=== PATIENT | male | born 1990 | race Caucasian/White ===

== ENCOUNTER 2020-01-02 18:48 | Emergency (ER) | payer SELFPAY ==
[~2020-01-02] VITALS: Ht 180.3 cm; Wt 112.0 kg
--- NOTE | 2020-01-02 19:16 | NUR ---
BP CUFF, PULSE OX IN PLACE. URINE COLLECTED/SENT TO LAB. PT STATES PAIN TOLERABLE AT THIS TIME, RATED 6/10 TO LUQ. FAMILY AT BS, CALL LIGHT WITHIN REACH.
[2020-01-02 19:25] LABS: MICROSCOPIC NOT IND
[2020-01-02 19:30] LABS: CULTURE INDICATED? NO
[2020-01-02 19:40] LABS: BASOPHILS # (AUTO) 0.04 x10^3/uL (0-0.1); BASOPHILS % (AUTO) 0 % (0-1); EOSINOPHILS # (AUTO) 0.28 x10^3/uL (0-0.4); EOSINOPHILS % (AUTO) 2 % (1-7); LYMPHOCYTES # (AUTO) 2.48 x10^3/uL (1-3.4); LYMPHOCYTES % (AUTO) 21 % (22-44); MD NO; MEAN CORPUSCULAR HGB CONC 33.3 g/dL (33.2-36.2); MEAN CORPUSCULAR VOLUME 87.3 fL (81-97); MEAN PLATELET VOLUME 7.8 fL (7.4-10.4); MONOCYTES % (AUTO) 4 % (2-9); NEUTROPHILS # (AUTO) 8.37 x10^3/uL (1.8-6.8); NEUTROPHILS % (AUTO) 72 % (42-75); PLATELET COUNT 290 x10^3/uL (130-400); RED BLOOD COUNT 5.29 x10^6/uL (4.38-5.82); RED CELL DISTRIBUTION WIDTH 13.1 % (9.4-14.8)
[2020-01-02 19:50] LABS: ALANINE AMINOTRANSFERASE 29 U/L (12-78); ALBUMIN 3.4 g/dL (3.4-5.0); ANION GAP 6 mmol/L (5-15); CALCIUM 8.6 mg/dL (8.5-10.1); CHLORIDE 106 mmol/L (98-107); CREATININE 0.99 mg/dL (0.7-1.3)
[2020-01-02 19:52] LABS: ALKALINE PHOSPHATASE 118 U/L (45-117); BILIRUBIN,TOTAL 0.4 mg/dL (0.2-1.0); TOTAL PROTEIN 6.8 g/dL (6.4-8.2)
[2020-01-02] MEDS ORDERED: HYDROmorphone 1 MG/ML, 1ML INJ ONE (20:11)
--- NOTE | 2020-01-02 20:14 | NUR ---
PT WITH EXCRUCIATING LUQ PAIN, VERBAL ORDER FOR DILAUDID OBTAINED FROM ERP. DILAUDID GIVEN, VS UPDATED IN COMPUTER. CALL LIGHT WITHIN REACH. FAMILY AT BS.
[2020-01-02] MEDS ORDERED: HYDROmorphone 1 MG/ML, 1ML INJ IV ONE (20:30)
--- NOTE | 2020-01-02 20:40 | NUR ---
REPORT RECEIVED FROM HOLGER SOUZA. PLAN OF CARE DISCUSSED. WAITING FOR RECORDS FROM [facility]
--- NOTE | 2020-01-02 20:46 | NUR ---
PER [employer], MEDICAL RECORDS RECEIVED FROM [facility], GIVEN TO ERP
[2020-01-02] MEDS ORDERED: KETOROLAC 30 MG/1 ML IVPush ONE (21:00)
[2020-01-02] MEDS ORDERED: KETOROLAC 30 MG/1 ML ONE (21:01)
--- NOTE | 2020-01-02 21:10 | NUR ---
PATIENT MEDICATED PER EMAR, TOLERATED WELL ERP TO BEDSIDE AT THIS TIME
[2020-01-02] MEDS ORDERED: OMNIPAQUE 350 MG/ML, 100ML BOTTLE ONE (21:44)
[2020-01-02 22:08] VITALS: BP 136/82
--- NOTE | 2020-01-02 22:08 | NUR ---
PATIENT BACK FROM CT
[2020-01-02] MEDS ORDERED: PANTOPRAZOLE 40 MG IV ONE (22:18)
[2020-01-02] MEDS ORDERED: PANTOPRAZOLE 40 MG IV IVPush ONE (22:30)
--- NOTE | 2020-01-02 22:40 | NUR ---
PATIENT MEDICATED PER EMAR, TOLERATED WELL. PIV REMOVED
--- NOTE | 2020-01-02 22:52 | NUR ---
Patient/Caregiver given discharge instructions and they have confirmed that they understand the instructions. Patient ambulatory with steady gait.
== END 2020-01-02 22:54 | disposition home or self-care (01) ==
LOC: ED 22:15
DX: R10.12 Left upper quadrant pain (principal); R06.02 Shortness of breath; F17.200 Nicotine dependence, unspecified, uncomplicated
CPT/HCPCS: 36415; 71275; 80053; 81003; 83690; 85025; 85379; 96374; 96375; 99285; C9113; J1170; J1885; Q9967

== ENCOUNTER 2020-01-07 04:33 | Emergency (ER) | payer SELFPAY ==
[~2020-01-07] VITALS: Ht 177.8 cm; Wt 112.0 kg
--- NOTE | 2020-01-07 04:42 | NUR ---
BIBA FOR C/O LEFT UPPER ABD PAIN ON AND OFF X1 WEEK. TODAY IT CAME ON SUDDENLY WHILE RESTING PER PT. PLACED VITALS MONITORS, SIDE RAILS UP AND LOCKED, CALL LIGHT PLACED WITHIN REACH.
--- NOTE | 2020-01-07 05:05 | NUR ---
ER provider at bedside for eval.
[2020-01-07] MEDS ORDERED: ONDANSETRON 2MG/ML, 2ML ONE (05:16)
[2020-01-07] MEDS ORDERED: FAMOTIDINE 20 MG/2 ML ONE (05:17)
[2020-01-07] MEDS ORDERED: MORPHINE SULFATE 4 MG/ML, 1ML ONE (05:17)
[2020-01-07] MEDS ORDERED: ONDANSETRON 2MG/ML, 2ML IVPush ONE (05:30)
[2020-01-07] MEDS ORDERED: FAMOTIDINE 20 MG/2 ML IVPush ONE (05:30)
[2020-01-07] MEDS ORDERED: MORPHINE SULFATE 4 MG/ML, 1ML IVPush PRN (05:30)
[2020-01-07] MEDS ORDERED: SODIUM CHLORIDE FLUSH 10ML SYR IVF ONE (05:30)
--- NOTE | 2020-01-07 05:56 | NUR ---
VSS, MEDICATED PER MAR. SIDE RAILS UP AND LOCKED, SPOUSE AT BEDSIDE.
[2020-01-07 06:12] LABS: ALANINE AMINOTRANSFERASE 93 U/L (12-78); ALBUMIN 3.2 g/dL (3.4-5.0); ANION GAP 8 mmol/L (5-15); CALCIUM 8.6 mg/dL (8.5-10.1); CHLORIDE 108 mmol/L (98-107); CREATININE 1.08 mg/dL (0.7-1.3)
[2020-01-07 06:14] LABS: ALKALINE PHOSPHATASE 150 U/L (45-117); BILIRUBIN,TOTAL 0.3 mg/dL (0.2-1.0); TOTAL PROTEIN 6.9 g/dL (6.4-8.2)
--- NOTE | 2020-01-07 06:22 | NUR ---
PT SLEEPING, EASILY AROUSED, VSS, DENIES PAIN AT THIS TIME.
[2020-01-07 06:23] LABS: MEAN CORPUSCULAR HGB CONC 33.5 g/dL (33.2-36.2); MEAN CORPUSCULAR VOLUME 86.5 fL (81-97); MEAN PLATELET VOLUME 7.5 fL (7.4-10.4); PLATELET COUNT 310 x10^3/uL (130-400); RED BLOOD COUNT 5.43 x10^6/uL (4.38-5.82)
[2020-01-07 06:43] LABS: BASOPHILS # (AUTO) 0.07 x10^3/uL (0-0.1); BASOPHILS % (AUTO) 0 % (0-1); EOSINOPHILS % (AUTO) 2 % (1-7); LYMPHOCYTES # (AUTO) 2.76 x10^3/uL (1-3.4); LYMPHOCYTES % (AUTO) 15 % (22-44); MD SCAN; MONOCYTES # (AUTO) 0.73 x10^3/uL (0.2-0.8); MONOCYTES % (AUTO) 4 % (2-9); NEUTROPHILS # (AUTO) 14.94 x10^3/uL (1.8-6.8); NEUTROPHILS % (AUTO) 80 % (42-75)
--- NOTE | 2020-01-07 06:46 | NUR ---
Report given to Keny WREN.
[2020-01-07] MEDS ORDERED: OMNIPAQUE 350 MG/ML, 150 ML BOTTLE ONE (07:45)
[2020-01-07 08:28] VITALS: BP 109/71
--- NOTE | 2020-01-07 08:28 | NUR ---
Patient given discharge instructions and they have confirmed that they understand the instructions. Patient ambulatory with steady gait. Ride coming to drive pt & sig.other home.
== END 2020-01-07 08:30 | disposition home or self-care (01) ==
LOC: ED 06:11
DX: K29.70 Gastritis, unspecified, without bleeding (principal); R10.13 Epigastric pain; F17.210 Nicotine dependence, cigarettes, uncomplicated
CPT/HCPCS: 36415; 74177; 76700; 80053; 83690; 85025; 96374; 96375; 99285; J2270; J2405; J3490; Q9967

== ENCOUNTER 2020-05-04 12:51 | Emergency (ER) | payer MEDICAID ==
[~2020-05-04] VITALS: Ht 177.8 cm; Wt 111.0 kg
[2020-05-04 13:02] VITALS: BP 112/73
--- NOTE | 2020-05-04 13:05 | NUR ---
PT BIB EMS FOR ABDOMINAL PAIN W N/V. PT DENIES COUGH, SOB OR CP. REGUALAR BM. LEFT SIDED PAIN.
--- NOTE | 2020-05-04 13:33 | NUR ---
TASK RN: PT AT DOOR, STATES "I'M FEELING BETTER AND JUST WANT TO LEAVE. I KNOW I NEED TO F/U WITH PCP" NO IV TO DC. PT LEFT AMBULATORY, GAIT STEADY.
== END 2020-05-04 13:36 | disposition left against medical advice (07) ==
LOC: ED 13:35
DX: R10.9 Unspecified abdominal pain (principal); Z53.21 Procedure and treatment not carried out due to patient leaving prior to being seen by health care provider

== ENCOUNTER 2020-06-01 07:35 | Emergency (ER) | payer MEDICAID ==
[~2020-06-01] VITALS: Ht 177.8 cm; Wt 120.0 kg
[2020-06-01] MEDS ORDERED: PLEASE ENTER HEIGHT AND WEIGHT MC SCH (08:00)
[2020-06-01] MEDS ORDERED: SODIUM CHLORIDE FLUSH 10ML SYR IVF ONE (08:00)
--- NOTE | 2020-06-01 08:09 | NUR ---
Break RN note: Pt resting in bed with eyes closed, resp even and unlabored, NADN.
[2020-06-01 08:28] LABS: BASOPHILS # (AUTO) 0.07 x10^3/uL (0-0.1); BASOPHILS % (AUTO) 1 % (0-1); EOSINOPHILS # (AUTO) 0.42 x10^3/uL (0-0.4); EOSINOPHILS % (AUTO) 3 % (1-7); LYMPHOCYTES % (AUTO) 24 % (22-44); MD NO; MEAN CORPUSCULAR HEMOGLOBIN 28.7 pg (27.5-34.5); MEAN CORPUSCULAR HGB CONC 32.4 g/dL (33.2-36.2); MEAN CORPUSCULAR VOLUME 88.7 fL (81-97); MEAN PLATELET VOLUME 7.6 fL (7.4-10.4); MONOCYTES # (AUTO) 0.55 x10^3/uL (0.2-0.8); MONOCYTES % (AUTO) 4 % (2-9); NEUTROPHILS # (AUTO) 9.75 x10^3/uL (1.8-6.8); NEUTROPHILS % (AUTO) 69 % (42-75); PLATELET COUNT 246 x10^3/uL (130-400); RED BLOOD COUNT 5.74 x10^6/uL (4.38-5.82); RED CELL DISTRIBUTION WIDTH 13.1 % (9.4-14.8)
[2020-06-01 08:37] LABS: ALBUMIN 3.2 g/dL (3.4-5.0); ANION GAP 4 mmol/L (5-15); CALCIUM 8.3 mg/dL (8.5-10.1); CHLORIDE 110 mmol/L (98-107)
[2020-06-01 08:40] LABS: ALANINE AMINOTRANSFERASE 48 U/L (12-78); ALKALINE PHOSPHATASE 109 U/L (45-117); BILIRUBIN,TOTAL 0.5 mg/dL (0.2-1.0); CREATININE 1.02 mg/dL (0.7-1.3); TOTAL PROTEIN 6.1 g/dL (6.4-8.2)
[2020-06-01 08:55] VITALS: BP 136/80
[2020-06-01] MEDS ORDERED: OMNIPAQUE 350 MG/ML, 100ML BOTTLE ONE (10:01)
[2020-06-01] MEDS ORDERED: MAALOX/HYOSCYAMINE/LIDOCAINE 45 ML BTL PO ONE (11:30)
== END 2020-06-01 11:30 | disposition home or self-care (01) ==
LOC: ED 08:13
DX: K29.00 Acute gastritis without bleeding (principal); K31.0 Acute dilatation of stomach; R11.2 Nausea with vomiting, unspecified; K76.0 Fatty (change of) liver, not elsewhere classified; F17.290 Nicotine dependence, other tobacco product, uncomplicated
CPT/HCPCS: 36415; 74177; 76700; 80053; 83690; 85025; 99285; Q9967

== ENCOUNTER 2020-06-24 20:03 | Emergency (ER) | payer MEDICAID ==
[~2020-06-24] VITALS: Ht 177.8 cm; Wt 110.0 kg
--- NOTE | 2020-06-24 20:05 | NUR ---
BIBA FOR LUQ ABD PAIN, PT REPORTS HX OF GASTRITIS AND AWAITING FOLLOW UP WITH GI.
[2020-06-24] MEDS ORDERED: ONDA4TAB7 PO (20:11)
[2020-06-24] MEDS ORDERED: SUCR1TAB33 PO (20:11)
[2020-06-24] MEDS ORDERED: ONDANSETRON 2MG/ML, 2ML IVPush ONE (21:00)
[2020-06-24] MEDS ORDERED: MORPHINE SULFATE 4 MG/ML, 1ML IVPush PRN (21:00)
[2020-06-24 21:14] LABS: BASOPHILS # (AUTO) 0.06 x10^3/uL (0-0.1); BASOPHILS % (AUTO) 0 % (0-1); EOSINOPHILS # (AUTO) 0.26 x10^3/uL (0-0.4); EOSINOPHILS % (AUTO) 2 % (1-7); LYMPHOCYTES # (AUTO) 2.54 x10^3/uL (1-3.4); LYMPHOCYTES % (AUTO) 16 % (22-44); MD NO; MEAN CORPUSCULAR HEMOGLOBIN 29.2 pg (27.5-34.5); MEAN CORPUSCULAR VOLUME 88.6 fL (81-97); MEAN PLATELET VOLUME 7.9 fL (7.4-10.4); MONOCYTES % (AUTO) 3 % (2-9); NEUTROPHILS # (AUTO) 12.09 x10^3/uL (1.8-6.8); NEUTROPHILS % (AUTO) 78 % (42-75); PLATELET COUNT 256 x10^3/uL (130-400); RED BLOOD COUNT 5.36 x10^6/uL (4.38-5.82)
[2020-06-24] MEDS ORDERED: MORPHINE SULFATE 4 MG/ML, 1ML ONE (21:23)
[2020-06-24] MEDS ORDERED: ONDANSETRON 2MG/ML, 2ML ONE (21:23)
[2020-06-24 21:24] LABS: ALANINE AMINOTRANSFERASE 36 U/L (12-78); ALBUMIN 3.2 g/dL (3.4-5.0); ANION GAP 2 mmol/L (5-15); CALCIUM 7.7 mg/dL (8.5-10.1); CHLORIDE 111 mmol/L (98-107); CREATININE 1.01 mg/dL (0.7-1.3)
[2020-06-24 21:27] LABS: ALKALINE PHOSPHATASE 105 U/L (45-117); BILIRUBIN,TOTAL 0.2 mg/dL (0.2-1.0); TOTAL PROTEIN 6.2 g/dL (6.4-8.2)
--- NOTE | 2020-06-24 22:30 | NUR ---
PT RESTING ON GUNEIDA IN NAD, SPOUSE AT BEDSIDE.
--- NOTE | 2020-06-24 23:05 | NUR ---
SLEEPING IN NAD, EVEN AND UNLABORED RESPIRATIONS. VSS. SPOUSE AT BEDSIDE.
--- NOTE | 2020-06-24 23:13 | NUR ---
REPORT GIVEN TO AKBAR WREN.
[2020-06-25 00:21] VITALS: BP 135/74
== END 2020-06-25 00:23 | disposition home or self-care (01) ==
LOC: ED 22:26
DX: K80.20 Calculus of gallbladder without cholecystitis without obstruction (principal)
CPT/HCPCS: 36415; 76700; 80053; 83690; 85025; 96374; 96375; 99284; J2270; J2405

== ENCOUNTER 2020-06-25 18:38 | Emergency (ER) | payer MEDICAID ==
[~2020-06-25 18:38] MED LIST: ONDA4TAB7 PO; SUCR1TAB33 PO
--- NOTE | 2020-06-25 19:05 | NUR ---
mid triage patient reports " my abd cramping is much better. I'm just gong to go home." Despite re-direction patient and sure of decision.
== END 2020-06-25 19:09 | disposition left against medical advice (07) ==
LOC: ED 19:00
DX: R10.9 Unspecified abdominal pain (principal); Z53.21 Procedure and treatment not carried out due to patient leaving prior to being seen by health care provider

== ENCOUNTER 2020-07-03 20:52 | Emergency (ER) | payer MEDICAID ==
[~2020-07-03] VITALS: Ht 177.8 cm; Wt 109.0 kg
--- NOTE | 2020-07-03 21:01 | NUR ---
PT BIB [facility]. RECENTLY DIAGNOSED WITH GASTRITIS, PT TO SEE GI TOMORROW PER APPT. PT HAS ONGOING N/V AND "BURNING" ABD PAIN. GIVEN 100MCG FENTANYL, 4MG ZOFRAN EN ROUTE TO GOOD RELIEF. PT DRESSED IN GOWN, ATTACHED TO MONITORS. EKG DONE. PT DENIES ANY NEEDS OR CONCERNS AT THIS TIME, CALL LIGHT IN REACH.
[2020-07-03] MEDS ORDERED: FAMOTIDINE 20 MG TABLET PO ONE (21:30)
[2020-07-03] MEDS ORDERED: MAALOX/HYOSCYAMINE/LIDOCAINE 45 ML BTL PO ONE (21:30)
[2020-07-03] MEDS ORDERED: MAALOX/HYOSCYAMINE/LIDOCAINE 45 ML BTL ONE (21:35)
[2020-07-03] MEDS ORDERED: FAMOTIDINE 20 MG/2 ML ONE (21:35)
[2020-07-03 21:46] LABS: BASOPHILS # (AUTO) 0.05 x10^3/uL (0-0.1); BASOPHILS % (AUTO) 0 % (0-1); EOSINOPHILS % (AUTO) 2 % (1-7); LYMPHOCYTES # (AUTO) 2.97 x10^3/uL (1-3.4); LYMPHOCYTES % (AUTO) 22 % (22-44); MD NO; MEAN CORPUSCULAR HEMOGLOBIN 29.2 pg (27.5-34.5); MEAN CORPUSCULAR HGB CONC 33.1 g/dL (33.2-36.2); MEAN CORPUSCULAR VOLUME 88.4 fL (81-97); MEAN PLATELET VOLUME 7.7 fL (7.4-10.4); MONOCYTES # (AUTO) 0.53 x10^3/uL (0.2-0.8); MONOCYTES % (AUTO) 4 % (2-9); NEUTROPHILS # (AUTO) 9.73 x10^3/uL (1.8-6.8); NEUTROPHILS % (AUTO) 72 % (42-75); PLATELET COUNT 282 x10^3/uL (130-400); RED BLOOD COUNT 5.07 x10^6/uL (4.38-5.82); RED CELL DISTRIBUTION WIDTH 12.9 % (9.4-14.8)
[2020-07-03 21:57] LABS: ALANINE AMINOTRANSFERASE 71 U/L (12-78); ALBUMIN 3.2 g/dL (3.4-5.0); ANION GAP 6 mmol/L (5-15); CALCIUM 7.8 mg/dL (8.5-10.1); CHLORIDE 112 mmol/L (98-107); CREATININE 0.86 mg/dL (0.7-1.3)
[2020-07-03 21:59] LABS: ALKALINE PHOSPHATASE 133 U/L (45-117); BILIRUBIN,TOTAL 0.3 mg/dL (0.2-1.0); TOTAL PROTEIN 6.3 g/dL (6.4-8.2)
[2020-07-03 22:50] VITALS: BP 103/56
== END 2020-07-03 22:52 | disposition home or self-care (01) ==
LOC: ED 21:21
DX: K29.00 Acute gastritis without bleeding (principal); R10.13 Epigastric pain; R10.12 Left upper quadrant pain; R11.2 Nausea with vomiting, unspecified; R94.31 Abnormal electrocardiogram [ECG] [EKG]; F17.210 Nicotine dependence, cigarettes, uncomplicated
CPT/HCPCS: 36415; 80053; 80307; 83690; 85025; 93005; 99284; 99406

== ENCOUNTER 2020-08-06 01:40 | Emergency (ER) | payer MEDICAID ==
[~2020-08-06] VITALS: Ht 177.8 cm; Wt 110.0 kg
[2020-08-06] MEDS ORDERED: MAALOX/HYOSCYAMINE/LIDOCAINE 45 ML BTL PO ONE (02:00)
[2020-08-06] MEDS ORDERED: METOCLOPRAMIDE 5 MG/ML, 2ML IVPush ONE (02:00)
[2020-08-06] MEDS ORDERED: MAALOX/HYOSCYAMINE/LIDOCAINE 45 ML BTL ONE (02:04)
[2020-08-06] MEDS ORDERED: METOCLOPRAMIDE 5 MG/ML, 2ML ONE (02:04)
[2020-08-06 02:10] LABS: BASOPHILS # (AUTO) 0.06 x10^3/uL (0-0.1); BASOPHILS % (AUTO) 1 % (0-1); EOSINOPHILS # (AUTO) 0.33 x10^3/uL (0-0.4); EOSINOPHILS % (AUTO) 3 % (1-7); LYMPHOCYTES # (AUTO) 3.59 x10^3/uL (1-3.4); LYMPHOCYTES % (AUTO) 31 % (22-44); MD NO; MEAN CORPUSCULAR HEMOGLOBIN 28.8 pg (27.5-34.5); MEAN CORPUSCULAR HGB CONC 32.5 g/dL (33.2-36.2); MEAN PLATELET VOLUME 7.3 fL (7.4-10.4); MONOCYTES # (AUTO) 0.45 x10^3/uL (0.2-0.8); MONOCYTES % (AUTO) 4 % (2-9); NEUTROPHILS # (AUTO) 7.28 x10^3/uL (1.8-6.8); NEUTROPHILS % (AUTO) 62 % (42-75); PLATELET COUNT 271 x10^3/uL (130-400); RED BLOOD COUNT 5.39 x10^6/uL (4.38-5.82); RED CELL DISTRIBUTION WIDTH 12.7 % (9.4-14.8)
--- NOTE | 2020-08-06 02:10 | NUR ---
pt medicated per emar
[2020-08-06 02:23] LABS: ALANINE AMINOTRANSFERASE 43 U/L (12-78); ALBUMIN 3.2 g/dL (3.4-5.0); ANION GAP 5 mmol/L (5-15); CALCIUM 8.5 mg/dL (8.5-10.1); CHLORIDE 111 mmol/L (98-107); CREATININE 1.05 mg/dL (0.7-1.3)
[2020-08-06 02:25] LABS: ALKALINE PHOSPHATASE 105 U/L (45-117); BILIRUBIN,TOTAL 0.2 mg/dL (0.2-1.0); TOTAL PROTEIN 6.3 g/dL (6.4-8.2)
[2020-08-06 03:26] VITALS: BP 136/74
== END 2020-08-06 03:29 | disposition home or self-care (01) ==
LOC: ED 02:20
DX: R10.12 Left upper quadrant pain (principal); R11.2 Nausea with vomiting, unspecified; F17.210 Nicotine dependence, cigarettes, uncomplicated
CPT/HCPCS: 36415; 80053; 83690; 85025; 96374; 99283; 99406; J2765

== ENCOUNTER 2020-09-01 20:35 | Emergency (ER) | payer MEDICAID ==
[~2020-09-01] VITALS: Ht 177.8 cm; Wt 110.0 kg
[2020-09-01] MEDS ORDERED: DICY20TA3 PO (20:52)
[2020-09-01] MEDS ORDERED: ONDANSETRON ODT 4 MG ONE (21:29)
[2020-09-01] MEDS ORDERED: MORPHINE SULFATE 4 MG/ML, 1ML IVPush PRN (21:30)
[2020-09-01] MEDS ORDERED: ONDANSETRON 2MG/ML, 2ML ONE (21:30)
[2020-09-01] MEDS ORDERED: SODIUM CHLORIDE 0.9% 1,000ML IVBOLUS ONE (21:30)
[2020-09-01] MEDS ORDERED: MAALOX/HYOSCYAMINE/LIDOCAINE 45 ML BTL PO ONE (21:30)
[2020-09-01] MEDS ORDERED: MORPHINE SULFATE 4 MG/ML, 1ML ONE (21:30)
[2020-09-01] MEDS ORDERED: ONDANSETRON 2MG/ML, 2ML IVPush ONE (21:30)
[2020-09-01] MEDS ORDERED: SODIUM CHLORIDE FLUSH 10ML SYR IVF ONE (21:30)
[2020-09-01] MEDS ORDERED: MAALOX/HYOSCYAMINE/LIDOCAINE 45 ML BTL ONE (21:40)
[2020-09-01 21:55] LABS: BASOPHILS % (AUTO) 1 % (0-1); EOSINOPHILS % (AUTO) 1 % (1-7); LYMPHOCYTES % (AUTO) 16 % (22-44); MEAN CORPUSCULAR HEMOGLOBIN 28.9 pg (27.5-34.5); MEAN CORPUSCULAR HGB CONC 33.4 g/dL (33.2-36.2); MEAN PLATELET VOLUME 7.3 fL (7.4-10.4); MONOCYTES % (AUTO) 4 % (2-9); NEUTROPHILS % (AUTO) 79 % (42-75); PLATELET COUNT 284 x10^3/uL (130-400); RED BLOOD COUNT 5.29 x10^6/uL (4.38-5.82); RED CELL DISTRIBUTION WIDTH 12.6 % (9.4-14.8)
[2020-09-01 21:58] LABS: MD NO
[2020-09-01 22:04] LABS: ALANINE AMINOTRANSFERASE 92 U/L (12-78); ALBUMIN 3.1 g/dL (3.4-5.0); ANION GAP 6 mmol/L (5-15); CALCIUM 8.9 mg/dL (8.5-10.1); CHLORIDE 106 mmol/L (98-107); CREATININE 1.16 mg/dL (0.7-1.3)
[2020-09-01 22:09] LABS: ALKALINE PHOSPHATASE 117 U/L (45-117); BILIRUBIN,TOTAL 0.3 mg/dL (0.2-1.0); TOTAL PROTEIN 6.3 g/dL (6.4-8.2)
[2020-09-01 22:46] LABS: MICROSCOPIC NOT IND
[2020-09-01 23:50] VITALS: BP 108/54
== END 2020-09-01 23:53 | disposition home or self-care (01) ==
LOC: ED 22:09
DX: K29.00 Acute gastritis without bleeding (principal); F17.210 Nicotine dependence, cigarettes, uncomplicated
CPT/HCPCS: 36415; 80053; 81003; 83690; 85025; 96361; 96374; 96375; 99284; 99406; J2270; J2405; J7030

== ENCOUNTER 2020-11-21 18:39 | Inpatient (IN) | payer MEDICAID ==
[~2020-11-21] VITALS: Ht 177.8 cm; Wt 106.5 kg
[~2020-11-21 18:39] MED LIST changes: +DICY20TA3 PO; +OMEP20TA62 PO
--- NOTE | 2020-11-21 18:59 | NUR ---
pt ambulated back to room 20, c/o pain to upper abdominal area. pt in bed, and on cr monitor, and able to speak full sentences.
[2020-11-21] MEDS ORDERED: ONDANSETRON 2MG/ML, 2ML IVPush ONE ×2 (20:00→23:30)
[2020-11-21] MEDS ORDERED: SODIUM CHLORIDE FLUSH 10ML SYR IVF ONE (20:00)
[2020-11-21] MEDS ORDERED: MORPHINE SULFATE 4 MG/ML, 1ML IVPush PRN ×2 (20:00→23:30)
[2020-11-21] MEDS ORDERED: ONDANSETRON 2MG/ML, 2ML ONE ×2 (20:01→23:17)
[2020-11-21] MEDS ORDERED: MORPHINE SULFATE 4 MG/ML, 1ML ONE (20:01)
--- NOTE | 2020-11-21 20:28 | NUR ---
pt calm and sleeping. awakened and blood drawn from existing iv on left AC 20g. tolerated well, and lab took the blood to lab. meds given to pt and he verbalized relief of pain. on cr monitor, side rails up x2 and call light within reach. pt instructed to give UA sample
[2020-11-21 20:33] LABS: BASOPHILS % (AUTO) 0 % (0-1); EOSINOPHILS % (AUTO) 0 % (1-7); LYMPHOCYTES % (AUTO) 7 % (22-44); MEAN CORPUSCULAR HEMOGLOBIN 29.5 pg (27.5-34.5); MEAN CORPUSCULAR HGB CONC 33.9 g/dL (33.2-36.2); MEAN PLATELET VOLUME 7.8 fL (7.4-10.4); MONOCYTES % (AUTO) 3 % (2-9); NEUTROPHILS % (AUTO) 89 % (42-75); PLATELET COUNT 281 x10^3/uL (130-400); RED BLOOD COUNT 5.39 x10^6/uL (4.38-5.82); RED CELL DISTRIBUTION WIDTH 12.7 % (9.4-14.8)
[2020-11-21 20:41] LABS: ALANINE AMINOTRANSFERASE 295 U/L (12-78); ALBUMIN 3.5 g/dL (3.4-5.0); ANION GAP 5 mmol/L (5-15); CHLORIDE 105 mmol/L (98-107); CREATININE 0.82 mg/dL (0.7-1.3)
[2020-11-21 20:45] LABS: ALKALINE PHOSPHATASE 278 U/L (45-117); BILIRUBIN,TOTAL 1.9 mg/dL (0.2-1.0); TOTAL PROTEIN 6.9 g/dL (6.4-8.2)
--- NOTE | 2020-11-21 20:48 | NUR ---
pt awake and watching tv and in no distress at all. no c/o pain at this time. pt calm and cooperative, side rails up x2 and call light within reach.
[2020-11-21 20:55] LABS: MICROSCOPIC INDICATED
[2020-11-21 21:14] LABS: MD SCAN
--- NOTE | 2020-11-21 21:56 | NUR ---
pt calm and cooperative, and no acute distress. ivf started, 1 Liter NS.
[2020-11-21] MEDS ORDERED: SODIUM CHLORIDE 0.9% 1,000ML IVBOLUS ONE (22:00)
[2020-11-21] MEDS ORDERED: IBUPROFEN 600 MG TABLET PO PRN (23:00)
[2020-11-21] MEDS ORDERED: morphine SULFATE 10 MG/ML, 1ML IVPush PRN (23:00)
[2020-11-21] MEDS ORDERED: CEFOTETAN PMX 2GM/50ML 50 ML IVPB ONE (23:00)
[2020-11-21] MEDS: HEPARIN 5,000 UNITS/ML, 1ML SQ SCH (23:00)
[2020-11-21] MEDS ORDERED: LABETALOL 5MG/ML, 20ML IVPush PRN (23:00)
[2020-11-21] MEDS ORDERED: DOCUSATE 100 MG CAPSULE PO PRN (23:00)
[2020-11-21] MEDS: NS + 20MEQ KCL 1,000 ML IV SCH (23:00)
[2020-11-21] MEDS ORDERED: HEPARIN 5,000 UNITS/ML, 1ML ONE (23:27)
[2020-11-21] MEDS ORDERED: ONDANSETRON 2MG/ML, 2ML IVPush PRN (23:30)
[2020-11-21] MEDS ORDERED: SODIUM CHLORIDE FLUSH 10ML SYR IVF PRN (23:30)
--- NOTE | 2020-11-21 23:59 | NUR ---
report called to RN on floor. pt awake and alert, remains in mild discomfort to abdomen, no further emesis at this time. pts at bedside. pt on cr monitor. to be transported to room via ER gurney.
[2020-11-22] MEDS: HYDROcodone/APAP 5/325 TABLET PO PRN ×4 (00:40→20:28)
[2020-11-22] MEDS ORDERED: OMNIPAQUE 350 MG/ML, 150 ML BOTTLE ONE (01:02)
[2020-11-22 03:57] VITALS: BP 145/83
[2020-11-22 06:20] LABS: BASOPHILS % (AUTO) 0 % (0-1); EOSINOPHILS % (AUTO) 1 % (1-7); LYMPHOCYTES % (AUTO) 18 % (22-44); MD NO; MEAN CORPUSCULAR HEMOGLOBIN 29.5 pg (27.5-34.5); MEAN CORPUSCULAR HGB CONC 33.7 g/dL (33.2-36.2); MEAN PLATELET VOLUME 8.1 fL (7.4-10.4); MONOCYTES % (AUTO) 4 % (2-9); NEUTROPHILS % (AUTO) 77 % (42-75); PLATELET COUNT 272 x10^3/uL (130-400); RED BLOOD COUNT 5.24 x10^6/uL (4.38-5.82); RED CELL DISTRIBUTION WIDTH 12.7 % (9.4-14.8)
[2020-11-22 06:38] LABS: ALBUMIN 3.1 g/dL (3.4-5.0); ANION GAP 5 mmol/L (5-15); CALCIUM 8.5 mg/dL (8.5-10.1); CHLORIDE 108 mmol/L (98-107)
[2020-11-22] MEDS: NS + 20MEQ KCL 1,000 ML IV SCH (06:40)
[2020-11-22 06:43] LABS: ALANINE AMINOTRANSFERASE 246 U/L (12-78); ALKALINE PHOSPHATASE 270 U/L (45-117); CREATININE 0.85 mg/dL (0.7-1.3); TOTAL PROTEIN 6.5 g/dL (6.4-8.2)
[2020-11-22 07:40] VITALS: BP 141/79
[2020-11-22] MEDS: OMEPRAZOLE 20 MG CAPSULE.DR PO SCH (10:19)
[2020-11-22] MEDS: HEPARIN 5,000 UNITS/ML, 1ML SQ SCH ×2 (10:19→17:52)
[2020-11-22] MEDS: NICOTINE 14MG/24 HR PATCH.TD24 TD SCH (10:20)
[2020-11-22 14:41] VITALS: BP 133/87
[2020-11-22 20:33] VITALS: BP 128/80
[2020-11-22] MEDS ORDERED: CEFOTETAN PMX 2GM/50ML 50 ML IV SCH (23:00)
[2020-11-23] MEDS: HEPARIN 5,000 UNITS/ML, 1ML SQ SCH ×4 (01:30→19:04)
[2020-11-23 03:27] VITALS: BP 135/75
[2020-11-23 05:22] LABS: CHLORIDE 108 mmol/L (98-107)
[2020-11-23 05:25] LABS: BASOPHILS % (AUTO) 1 % (0-1); EOSINOPHILS % (AUTO) 4 % (1-7); LYMPHOCYTES % (AUTO) 43 % (22-44); MEAN CORPUSCULAR HEMOGLOBIN 29.4 pg (27.5-34.5); MEAN CORPUSCULAR HGB CONC 33.9 g/dL (33.2-36.2); MEAN PLATELET VOLUME 8.1 fL (7.4-10.4); MONOCYTES % (AUTO) 5 % (2-9); NEUTROPHILS % (AUTO) 48 % (42-75); PLATELET COUNT 277 x10^3/uL (130-400); RED BLOOD COUNT 4.92 x10^6/uL (4.38-5.82); RED CELL DISTRIBUTION WIDTH 12.8 % (9.4-14.8)
[2020-11-23 05:29] LABS: ALANINE AMINOTRANSFERASE 185 U/L (12-78); ALKALINE PHOSPHATASE 247 U/L (45-117); ANION GAP 4 mmol/L (5-15); BILIRUBIN,TOTAL 0.7 mg/dL (0.2-1.0); CALCIUM 9.2 mg/dL (8.5-10.1); CREATININE 0.72 mg/dL (0.7-1.3); TOTAL PROTEIN 6.3 g/dL (6.4-8.2)
[2020-11-23 05:42] LABS: MD NO
[2020-11-23 08:33] VITALS: BP 135/83
[2020-11-23] MEDS: OMEPRAZOLE 20 MG CAPSULE.DR PO SCH (08:43)
[2020-11-23] MEDS: NICOTINE 14MG/24 HR PATCH.TD24 TD SCH (09:43)
[2020-11-23 12:56] VITALS: BP 144/95
[2020-11-23 15:32] VITALS: BP 134/88
[2020-11-23 19:13] VITALS: BP 162/93
[2020-11-23] MEDS ORDERED: MELATONIN 5 MG TABLET PO PRN (22:00)
[2020-11-24 01:13] VITALS: BP 107/68
[2020-11-24 07:15] VITALS: BP 114/73
[2020-11-24] MEDS: OMEPRAZOLE 20 MG CAPSULE.DR PO SCH (08:39)
[2020-11-24] MEDS: NICOTINE 14MG/24 HR PATCH.TD24 TD SCH (08:42)
[2020-11-24] MEDS: HEPARIN 5,000 UNITS/ML, 1ML SQ SCH (08:54)
[2020-11-24] MEDS ORDERED: CHLORHEXIDINE 15 ML UDC ONE (10:38)
[2020-11-24] MEDS ORDERED: MIDAZOLAM 1 MG/ML, 2ML ONE (10:38)
[2020-11-24] MEDS ORDERED: FENTANYL PF 250 MCG/5ML ONE (10:38)
[2020-11-24] MEDS ORDERED: BUPIVACAINE/PF 0.5% ONE (10:44)
[2020-11-24] MEDS ORDERED: EPINEPHRINE 1 MG/ML, 1ML ONE (10:44)
[2020-11-24] MEDS ORDERED: PROMETHAZINE 25 MG/ML, 1ML IVPush PRN (11:00)
[2020-11-24] MEDS ORDERED: DIPHENHYDRAMINE 50 MG/ML, 1ML IVPush PRN (11:00)
[2020-11-24] MEDS ORDERED: HALOPERIDOL 5 MG/ML IV PRN (11:00)
[2020-11-24] MEDS ORDERED: LABETALOL 5MG/ML, 20ML IV PRN (11:00)
[2020-11-24] MEDS ORDERED: HYDROmorphone 1 MG/ML, 1ML INJ IVPush PRN (11:00)
[2020-11-24] MEDS ORDERED: MEPERIDINE/PF 25MG/0.5ML IVPush PRN (11:00)
[2020-11-24] MEDS ORDERED: OXYcodone 5 MG/5 ML ORAL.SOL UDC PO PRN (11:00)
[2020-11-24] MEDS ORDERED: hydrALAzine 20 MG/ML, 1ML IV PRN (11:00)
[2020-11-24] MEDS ORDERED: CHLORHEXIDINE 15 ML UDC MM ONE (11:00)
[2020-11-24] MEDS ORDERED: BUPIVACAINE/PF 0.5% INFIL ONE (11:13)
[2020-11-24] MEDS ORDERED: KETOROLAC 30 MG/1 ML ONE (11:16)
[2020-11-24] MEDS ORDERED: CEFOTETAN 1 GM ONE (11:16)
[2020-11-24] MEDS ORDERED: ONDANSETRON 2MG/ML, 2ML ONE (11:43)
[2020-11-24] MEDS ORDERED: PROPOFOL 10 MG/ML, 20ML ONE (11:43)
[2020-11-24] MEDS ORDERED: CEFAZOLIN 1,000 MG ONE (11:43)
[2020-11-24] MEDS ORDERED: NEOSTIGMINE 1 MG/ML, 10ML ONE (11:43)
[2020-11-24] MEDS ORDERED: ROCURONIUM 10MG/ML,5ML ONE (11:43)
[2020-11-24] MEDS ORDERED: SUCCINYLCHOLINE 20 MG/ML, 10ML ONE (11:43)
[2020-11-24] MEDS ORDERED: GLYCOPYRROLATE 0.2MG/1ML, 5ML ONE (11:43)
[2020-11-24] MEDS ORDERED: HYDR-3240 PO (11:51)
[2020-11-24] MEDS ORDERED: FENTANYL PF 100 MCG/2ML ONE (12:03)
[2020-11-24] MEDS ORDERED: OXYcodone 5 MG/5 ML ORAL.SOL UDC ONE (12:03)
[2020-11-24] MEDS: FENTANYL PF 100 MCG/2ML IV PRN ×2 (12:05→12:23)
[2020-11-24] MEDS ORDERED: HYDR-3237 PO (15:46)
[2020-11-24] MEDS: HYDROcodone/APAP 5/325 TABLET PO PRN (16:51)
== END 2020-11-24 17:08 | disposition home or self-care (01) | DRG 417 ==
LOC: ED 20:19 → EDIP 22:58 → 3N 11-22 00:05 → 4NE 11-24 13:00
PROVIDERS: ADMIT Family Medicine; ATTEND Family Medicine
PROC: 0FT44ZZ Resection of Gallbladder, Percutaneous Endoscopic Approach (ICD-10-PCS; principal; 2020-11-24 14:15)
DX: K80.66 Calculus of gallbladder and bile duct with acute and chronic cholecystitis without obstruction (principal); K85.10 Biliary acute pancreatitis without necrosis or infection; E66.9 Obesity, unspecified; Z20.822 Contact with and (suspected) exposure to COVID-19; E87.6 Hypokalemia; F17.200 Nicotine dependence, unspecified, uncomplicated; G89.29 Other chronic pain; J44.9 Chronic obstructive pulmonary disease, unspecified; K21.9 Gastro-esophageal reflux disease without esophagitis; K82.8 Other specified diseases of gallbladder; Z68.23 Body mass index [BMI] 23.0-23.9, adult
CPT/HCPCS: 36415; 99285; S0020; 74177; 74181; 80053; 81001; 83690; 85025; 87086; 87635; 88304; C1729; G0378; J0171; J0690; J1644; J1885; J2250; J2405; J2704; J2710; J3010; J3480; Q9967; C1760; J0330; J2270; J7030